=== PATIENT | female | born 1990 | race Caucasian/White ===

== ENCOUNTER → 2018-10-13 14:13 | Outpatient (CLI) | payer BC, SELFPAY ==
--- NOTE | 2018-10-13 14:15 | US_ITS ---
US OB transvaginal HISTORY: ITS.REASON: US OB Dates ORDERING PHYSICIAN: Kaila Rossi MD PATIENT AGE: 28 years COMPARISON: None FINDINGS: An intrauterine gestational sac is present with a pole with a crown-rump length of 2.03cm correlating to gestational age of 8w5d. heart tones are present with an FHR of 157 bpm's. Yolk sac is noted. The amnion and chorion have not yet fused. Adnexa: Unremarkable. IMPRESSION: Live intrauterine gestation at 8 weeks 5 days days as described above. Estimated due date by Ultrasound is 05/20/2019
== END ==
PROVIDERS: PCP Family Medicine; Visit Provider Obstetrics & Gynecology
DX: O26.841 Uterine size-date discrepancy, first trimester (principal)
CPT/HCPCS: 76817

== ENCOUNTER → 2018-10-13 15:11 | Outpatient (CLI) | payer BC, SELFPAY ==
[2018-10-13 16:13] LABS: Basophils % 0.3 % (0.1-2.0); Eosinophils # 0.1 K/mm3 (0.0-0.4); Eosinophils % 0.8 % (0.1-12.0); Hematocrit 43.8 % (37.0-47.0); Hemoglobin 14.3 g/dL (12.2-16.2); Lymphocytes # 2.4 K/mm3 (0.7-4.5); Mean Corpuscular HGB Conc 32.6 g/dL (31.8-35.4); Mean Corpuscular Hemoglobin 30.1 pg (27.0-31.2); Mean Corpuscular Volume 92.3 fl (81-99); Mean Platelet Volume 8.5 fl (7.4-10.4); Monocytes # 0.5 K/mm3 (0.1-1.0); Neutrophils # 9.6 K/mm3 (1.8-7.8); Platelet Count 224 K/mm3 (142-424); Red Blood Count 4.75 M/mm3 (4.20-5.40); Red Cell Distribution Width 12.7 % (11.5-17.5); White Blood Count 12.6 K/mm3 (4.8-10.8)
[2018-10-15 07:13] LABS: HIV Screen 4th Generation wRfx Non Reactive (Non Reactive); Rapid Plasma Reagin Ab Titer Non Reactive (NonRea<1:1)
[2018-10-15 14:01] LABS: Hepatitis B Surface Antigen Negative (Negative); Hepatitis C Antibody <0.1 s/co ratio (0.0-0.9); Rubella Antibodies, IgG <0.90 index (Immune >0.99)
== END ==
PROVIDERS: Visit Provider Obstetrics & Gynecology
DX: Z34.90 Encounter for supervision of normal pregnancy, unspecified, unspecified trimester (principal)
CPT/HCPCS: 36415; 85025; 86592; 86703; 86762; 86850; 87340; 87380; G0432

== ENCOUNTER → 2019-01-03 14:54 | Outpatient (CLI) | payer BC, SELFPAY ==
--- NOTE | 2019-01-03 15:08 | US_ITS ---
US OB /maternal detail: INDICATION: ITS.REASON: US OB Complete ORDERING PHYSICIAN: Kaila Rossi MD PATIENT AGE: 28 years TECHNIQUE: ultrasound transabdominal scanning. COMPARISON: No previous relevant studies. FINDINGS: Single viable intrauterine gestation. Breech position. Placenta: Anterior placenta grade 1. There is average amount fluid. The cervix appears satisfactory. Closed and measuring 4 cm in length. Complete survey performed and was unremarkable on the submitted images as in PACS. No discrete anomalies identified on survey imaging by technologist. Active fetus. Three-vessel cord with satisfactory umbilical cord insertion. 4- chamber heart noted. Survey of brain & ventricles unremarkable. Face and neck survey unremarkable. Diaphragm and chest views unremarkable. Abdomen: Both kidneys noted and unremarkable. Stomach noted and satisfactory. Spine: Survey of the spine satisfactory with no anomalies identified nor imaged. Both arms and legs noted. Amniotic Fluid: Adequate. Maternal adnexa: No significant findings. Measurements: Average ultrasound age 20w4d. Gestational Age 20w3d. Estimated due date by ultrasound age 0705/19/2019. Estimated weight 350 grams. BPD = 21w3d OFD = 20w2d HC = 19w6d AC = 20w4d FL = 20w2d Growth Percentile= 42% Heart Rate = 161 Cerebellum = 21w4d Humerus = 21w4d HC/AC is 1.13(1.09-1.26). CI is 86% (70-86%). FL/BPD is 65%. FL/AC is 21%. IMPRESSION: There is a single live fetus which is in breech presentation. Average ultrasound age 20 weeks and 4 days. No obvious anomalies. All parameters correlate. Please see above for details. Placenta is anterior and grade 1
== END ==
PROVIDERS: PCP Family Medicine; Visit Provider Obstetrics & Gynecology
DX: Z36.0 Encounter for antenatal screening for chromosomal anomalies (principal)
CPT/HCPCS: 76811

== ENCOUNTER → 2019-02-21 08:41 | Outpatient (CLI) | payer BC, SELFPAY ==
[2019-02-21 10:57] LABS: Glucose 1 Hour 91 mg/dL (74-106); Glucose,Fasting 80 mg/dL (60-105)
== END ==
PROVIDERS: Visit Provider Obstetrics & Gynecology
DX: Z34.90 Encounter for supervision of normal pregnancy, unspecified, unspecified trimester (principal)
CPT/HCPCS: 36415; 82951

== ENCOUNTER → 2019-04-10 10:23 | Outpatient (CLI) | payer BC, SELFPAY ==
--- NOTE | 2019-04-10 10:30 | US_ITS ---
US OB follow up: Indication: ITS.REASON: US OB- Growth ILEANA LGA ORDERING PHYSICIAN: Kaila Rossi MD PATIENT AGE: 28 years FINDINGS: There is a single live fetus which is in cephalic presentation. heart and body motion is noted. The following parameters are obtained: Average ultrasound age is 36w0d. Estimated due date by ultrasound is 05/08/2019. Estimated weight is 2746 grams this is 84th percentile. BPD: 37w0d OFD: 35w3d HC: 35w4d AC: 36w0d FL: 35w0d heart rate: 169 bpm. HC/AC: 0.99 (0.96-1.11) Cephalic index: 83% (70-86%) FL/BPD: 75% (71-87%) FL/AC: 21% (20-24%) Amniotic fluid index: 14 cm No obvious anomalies evident. Placenta: Anterior GR 2 Cervix: Appears closed and measures 3 cm IMPRESSION: Single live fetus which is in cephalic presentation with an average ultrasound age of 36 weeks and 0 days with an estimated weight 2746 g which is 84th percentile. Anterior grade 2 placenta. Average amniotic fluid volume with an ILEANA of 14 cm
== END ==
PROVIDERS: PCP Family Medicine; Visit Provider Obstetrics & Gynecology
DX: O36.60X0 Maternal care for excessive fetal growth, unspecified trimester, not applicable or unspecified (principal)
CPT/HCPCS: 76816

== ENCOUNTER → 2019-04-19 18:13 | Outpatient (CLI) | payer BC, SELFPAY | PROVIDERS: Visit Provider Obstetrics & Gynecology | DX: Z34.90 Encounter for supervision of normal pregnancy, unspecified, unspecified trimester (principal) | CPT/HCPCS: 86403 ==

== ENCOUNTER 2019-04-25 22:44 | Inpatient (IN) ==
[2019-04-25 23:10] LABS: Microscopic, Urine URINE MICROSCOPIC (MICROSCOPIC)
[2019-04-25 23:15] LABS: Appearance,Urine CLEAR (Clear); Bilirubin,Urine Negative (Negative); Blood, Urine Negative (Negative); Color,Urine YELLOW (Yellow); Glucose,Urine (UA) Negative (Negative); Ketones,Urine Negative (Negative); Leukocyte Esterase,Urine Negative (Negative); Protein,Urine Negative (Negative); Urobilinogen,Urine 0.2 EU/dl (0.2)
[2019-04-25 23:21] LABS: Bacteria,Urine Trace /lpf; WBC,Urine Occasional #/hpf (0-3)
[2019-04-25 23:22] LABS: Amphetamine/Metha Screen,Urine Negative ng/mL (<1000); Barbiturates Screen,Urine Negative ng/mL (<200); Benzodiazepines Screen,Urine Negative ng/mL (<200); Cannabinoid Screen,Urine Negative ng/mL (<50); Cocaine Screen,Urine Negative ng/mL (<300); Methadone Screen,Urine Negative ng/mL (<300); Opiate Screen,Urine Negative ng/mL (<300); Phencyclidine Screen,Urine Negative ng/mL (<25)
[2019-04-26 02:58] LABS: Basophils % 0.1 % (0.1-2.0); Eosinophils # 0.1 K/mm3 (0.0-0.4); Eosinophils % 1.1 % (0.1-12.0); Hematocrit 40.1 % (37.0-47.0); Hemoglobin 13.2 g/dL (12.2-16.2); Lymphocytes # 2.1 K/mm3 (0.7-4.5); Lymphocytes % 17.4 % (10-50); Mean Corpuscular HGB Conc 32.8 g/dL (31.8-35.4); Mean Platelet Volume 10.3 fl (7.4-10.4); Monocytes # 0.6 K/mm3 (0.1-1.0); Monocytes % 5.2 % (1.7-9.3); Neutrophils # 9.4 K/mm3 (1.8-7.8); Neutrophils % 76.3 % (37.0-80.0); Platelet Count 156 K/mm3 (142-424); Red Blood Count 4.18 M/mm3 (4.20-5.40); White Blood Count 12.4 K/mm3 (4.8-10.8)
--- NOTE | 2019-04-26 04:19 | Progress Note ---
[facility] Anesthesia Checklist - Patient Identification Patient Identification: Arm Band, Verbal (Name & ) - Structural Data Admitted From: Home Planned Operative Procedure/s: Labor epidural Consent for Planned Operative Procedure(s) Verified: Yes Verified Documents: Surgical Consent, History and Physical - Chart Verification Results Verified: CBC - Additional verifications Patient : Yes Anesthesia Reactions: No - Airway Assessment C-Spine Mobility Assessed: Yes TMJ Mobility Assessed: Yes Dentition: Good Dentition - Neurological Assessment Level of Consciousness: Awake, Alert, Appropriate, Follows Commands Hx Seizures: No Numbness or tingling in extremities: No - Anesthesia Plan Anesthesia Risk discussed: Yes Anesthesia Plan: Verified ASA Class: II Anesthesia Type: Epidural [facility] History I have reviewed the patient's past medical history: Yes Medical History: Reports:: Anxiety Denies:: Depression, Migraine, MRSA, Seizures *Have you ever received a pneumonia vaccine?: No *Have you received a flu vaccine this season?: No Laterality Cases: Other Surgeries: Yes: Appendectomy. No: Amputation: No Fractures: No - *Social History Smoking Status: Former smoker Alcohol Intake: never Alcohol Intake Frequency:: 0-2 drinks per day Substance Use Type: denies use *Occupational Status:: employed Housing: house Household Members: spouse *Travel in the last 8 weeks: None - Psychiatric History Pschychiatric History:: Reports:: Anxiety Denies:: Depression Family Hx:: Cancer, Heart Attack, Hyperlipidemia, Hypertension, Stroke, Thyroid Disorder, Anemia Para: 0
--- NOTE | 2019-04-26 04:57 | Procedure Note ---
- Delivery Note Delivery Date:: 04/26/19 Delivery Time:: 04:35 Anesthesia Type: Epidural Was labor medically induced?: No Induction method: none Gestational age (weeks): 36 delivered prior to 39 weeks?: Yes Justification for early elective delivery:: Active Labor Infant Gender: Female at 1 minute: 7 at 5 minutes: 9 AF:: Clear fluid LAC or MLE?: LAC Delivery Procedure:: She is a 29-year-old 1 para 0 at 36 and 4 weeks gestational age. She ruptured her membranes on the night prior to discharge around 9:30 PM. Fluid was clear. She arrived in labor and delivery and was found to be 2 cm dilated and actively emily. She progressed to full dilation under labor epidural. She delivered spontaneously a liveborn female child at 4:35 AM on the morning of April 26, 2019. On deliver the head it was noted that there was a tight nuchal cord. I was able to deliver the rest the infant's body atraumatically and then reduce the cord. The baby was vigorous and cried spontaneously. The oropharynx and nasopharynx were then bulb suction. We allowed the cord to continue to pulsate for approximately 1 minute. The cord was then doubly clamped and cut. The baby was placed on the mother's abdomen for further care. The nurses assigned Apgars of 7 at 1 minute and 9 at 5 minutes. We then obtained cord blood as well as cord pH. pH was 7.33. Using gentle traction on the cord and countertraction the fundus I was able to easily deliver the placenta intact. It had a normal three-vessel cord. He had small bilateral labial tears were repaired with interrupted 3-0 Vicryl Rapide s uture. There is a tear in the vagina posteriorly just at the introitus and I used a single [id number] 3-0 Vicryl Rapide suture to proximate the tissues. She has a positive blood, she is rubella non-immune and was group B streptococcus negative. She plans to breast feed. Her key account coordinator is Dr. Gay. Estimated blood loss was approximately 500 cc. Laceration:: vaginal, labial Placental Delivery Description: Spontaneous
--- NOTE | 2019-04-26 04:59 | History & Physical Report ---
OB - H&P: HPI Antepartum - History of Present Illness Chief complaint: She ruptured her membranes at home at 36 weeks. History of present illness: She is a 29-year-old 1 para 0 who ruptured her membranes at home on the evening prior to delivery. There was clear amniotic fluid. She arrived having regular contractions. - History of Present Criteria for establishing EDC:: LMP confirmed by 1st trimester US care: good care Ultrasounds: normal 1st trimester US, normal mid trimester US Obstetrical complications: none Medical complications: none - Labs Blood type: A (+) positive Rubella: nonimmune RPR/VDRL: nonreactive GBS status: negative [facility] History I have reviewed the patient's past medical history: Yes Medical History: Reports:: Anxiety Denies:: Depression, Migraine, MRSA, Seizures *Have you ever received a pneumonia vaccine?: No *Have you received a flu vaccine this season?: No Laterality Cases: Other Surgeries: Yes: Appendectomy. No: Amputation: No Fractures: No - *Social History Smoking Status: Former smoker Alcohol Intake: never Alcohol Intake Frequency:: 0-2 drinks per day Substance Use Type: denies use *Occupational Status:: employed Housing: house Household Members: spouse *Travel in the last 8 weeks: None - Psychiatric History Pschychiatric History:: Reports:: Anxiety Denies:: Depression Family Hx:: Cancer, Heart Attack, Hyperlipidemia, Hypertension, Stroke, Thyroid Disorder, Anemia Para: 0 Review of Systems - Review of Systems Review of systems:: pertinent systems reviewed and negative unless documented below Meds Home Medications Medication Instructions Recorded Confirmed Type 1 tab PO DAILY 10/05/18 04/25/19 History vitamin,calcium,ipojojss-khol-vnzek acid tablet Allergies Allergy/AdvReac Type Severity Reaction Status Date / Time No Known Allergies Allergy Verified 04/24/19 16:11 OB - H&P: Exam - Physical Exam Vital signs: Temp Pulse Resp BP Pulse Ox 99.1 F 68 18 131/93 H 98 04/25/19 23:12 04/25/19 23:12 04/25/19 23:12 04/25/19 23:12 04/25/19 23:12 - Constitutional no acute distress - Routine HEENT Exam Head: Present: normocephalic Eye: Present: EOMI, PERRL ENT: Present: mucous membranes moist - Routine Neck Exam Present: supple, full ROM - Routine Respiratory Exam Absent: accessory muscle use (good air entry bilaterally), respiratory distress, wheezes, crackles - Routine Cardiovascular Exam Present: RRR. Absent: murmur - Routine Abdominal Exam Present: soft, normoactive bowel sounds. Absent: tenderness, distended, guarding - Routine Rectal Exam Patient deferred: visual exam, digital exam - Routine Exam Patient deferred: external exam, groin exam, perineal exam - Routine Extremities Exam Present: full ROM. Absent: cyanosis, edema - Routine Skin Exam Present: intact. Absent: cyanosis - Routine Neurological Exam Present: alert, oriented X3 - Routine Psychiatric Exam Present: normal affect OB - Results - Labs Labs: Short CBC 04/25/19 04/26/19 Range/Units 00:15 02:45 WBC 6.6 12.4 H D (4.8-10.8) K/mm3 Hgb 21.9 H* 13.2 (12.2-16.2) g/dL Hct 68.8 H* 40.1 (37.0-47.0) % Plt Count 51 L 156 D (142-424) K/mm3 Urine 04/25/19 Range/Units 22:52 Urine Color Yellow (Yellow) Urine Appearance Clear (Clear) Urine pH 6.0 (5.0-8.5) Ur Specific [place] 1.020 (1.005-1.030) Urine Protein Negative (Negative) Urine Glucose (UA) Negative (Negative) OB - A/P Antepartum (1) labor with delivery Current visit: Yes Status: Acute - Additional Plan Planning to breastfeed?: Yes Plan: expectant management
[2019-04-26 17:12] VITALS: BP 127/78
--- NOTE | 2019-04-26 17:51 | Discharge Summary ---
General - General Admission date:: 04/25/19 Discharge date: 04/28/19 HPI HPI: She is a 29-year-old 1 now para 1 who was 36 and 4 weeks gestational age. She ruptured her members at home and came into labor and delivery. Hospital Course Hospital Course: She progressed under labor epidural to full dilation and delivered spontaneously a liveborn female child at 4:35 AM on the morning of April 26, 2019. The baby weighed 6 pounds 6 ounces and was 19-1/2 inches long. She had Apgars of 7 at 1 minute and 9 at 5 minutes. She has done well and has remained afebrile throughout her hospitalization. She is eating and drinking and ambulating. She is breast- feeding. She has a positive blood, she is rubella nonimmune and will receive MMR prior to discharge. She was group A streptococcus negative. Her condition on discharge is stable. Rhogam Administration: Not Indicated Objective Vital signs: Temp Pulse Resp BP Pulse Ox 98.8 F 77 18 127/78 98 04/26/19 16:00 04/26/19 16:00 04/26/19 16:00 04/26/19 16:00 04/26/19 16:00 no acute distress Results Labs on day of discharge: Labs from last 24 hours 04/26/19 04/26/19 04/26/19 04:45 02:45 00:15 WBC 12.4 H Corrected WBC RBC 4.18 L Hgb 13.2 Hct 40.1 MCV 96.0 MCH 31.5 H MCHC 32.8 RDW 13.0 Plt Count 156 MPV 10.3 Neut % (Auto) 76.3 Lymph % (Auto) 17.4 [place] % (Auto) 5.2 Eos % (Auto) 1.1 Baso % (Auto) 0.1 Neut # (Auto) 9.4 H Lymph # (Auto) 2.1 [place] # (Auto) 0.6 Eos # (Auto) 0.1 Baso # (Auto) 0.0 Cord ABG pH 7.33 L Urine Color Urine Appearance Urine pH Ur Specific [place] Urine Protein Urine Glucose (UA) Urine Ketones Urine Blood Urine Nitrate Urine Bilirubin Urine Urobilinogen Ur Leukocyte Esterase Urine WBC Urine Bacteria Membrane Rupture Urine Opiates Screen Urine Methadone Screen Ur Barbituates Screen Ur Phencyclidine Scrn Ur Amphetamines Screen U Benzodiazepines Scrn Urine Cocaine Screen U Marijuana (THC) Screen Blood Type A Positive Antibody Screen Negative 04/25/19 04/25/19 04/25/19 22:52 22:52 22:52 WBC Corrected WBC RBC Hgb Hct MCV MCH MCHC RDW Plt Count MPV Neut % (Auto) Lymph % (Auto) [place] % (Auto) Eos % (Auto) Baso % (Auto) Neut # (Auto) Lymph # (Auto) [place] # (Auto) Eos # (Auto) Baso # (Auto) Cord ABG pH Urine Color Yellow Urine Appearance Clear Urine pH 6.0 Ur Specific [place] 1.020 Urine Protein Negative Urine Glucose (UA) Negative Urine Ketones Negative Urine Blood Negative Urine Nitrate Negative Urine Bilirubin Negative Urine Urobilinogen 0.2 Ur Leukocyte Esterase Negative Urine WBC Occasional Urine Bacteria Trace Membrane Rupture Positive A Urine Opiates Screen Negative Urine Methadone Screen Negative Ur Barbituates Screen Negative Ur Phencyclidine Scrn Negative Ur Amphetamines Screen Negative U Benzodiazepines Scrn Negative Urine Cocaine Screen Negative U Marijuana (THC) Screen Negative Blood Type Antibody Screen 04/25/19 04/25/19 00:15 00:15 WBC Cancelled Corrected WBC Cancelled RBC Cancelled Hgb Cancelled Hct Cancelled MCV Cancelled MCH Cancelled MCHC Cancelled RDW Cancelled Plt Count Cancelled MPV Cancelled Neut % (Auto) Cancelled Lymph % (Auto) Cancelled [place] % (Auto) Cancelled Eos % (Auto) Cancelled Baso % (Auto) Cancelled Neut # (Auto) Cancelled Lymph # (Auto) Cancelled [place] # (Auto) Cancelled Eos # (Auto) Cancelled Baso # (Auto) Cancelled Cord ABG pH Urine Color Urine Appearance Urine pH Ur Specific [place] Urine Protein Urine Glucose (UA) Urine Ketones Urine Blood Urine Nitrate Urine Bilirubin Urine Urobilinogen Ur Leukocyte Esterase Urine WBC Urine Bacteria Membrane Rupture Urine Opiates Screen Urine Methadone Screen Ur Barbituates Screen Ur Phencyclidine Scrn Ur Amphetamines Screen U Benzodiazepines Scrn Urine Cocaine Screen U Marijuana (THC) Screen Blood Type Cancelled Antibody Screen Cancelled DS: Diagnosis - Discharge Diagnosis (1) labor with delivery Status: Acute Discharge Plan - Patient Discharge Instructions ACTIVITY: Ambulate as tolerated - Follow up Plan Disposition: Home, Self-[facility] Medications: Home Medications Medication Instructions Recorded Confirmed Type 1 tab PO DAILY 10/05/18 04/25/19 History vitamin,calcium,foqgmrhp-kpuq-qroqp acid tablet Prescriptions/Medication Reconciliation: Continued vitamin,calcium,oenfdsvy-ljth-sqqtp acid tablet 1 tab PO DAILY
[2019-04-27 07:40] LABS: Hematocrit 34.6 % (37.0-47.0); Hemoglobin 11.1 g/dL (12.2-16.2)
--- NOTE | 2019-04-27 09:01 | Progress Note ---
Internal Medicine - PN: Subj *Date: 04/27/19 *Time: 08:59 Interval history: This is day #1. The patient is afebrile. Vital signs stable. Abdomen soft. Lochia normal. Uterine fundus involuting well. The baby is doing well. Patient's hemoglobin is 11.1 g, but she is clinically stable. She is anxious for early discharge, and will be discharged later today if the baby is cleared by the net repairer. She is rubella nonimmune, and will receive vaccine prior to discharge. She is given appropriate instructions as to diet and exercise, and she is to follow-up with Dr. Toney as scheduled. Exam Vital signs and Labs for Last 24 Hours: Temp Pulse Resp BP Pulse Ox 98.8 F 77 18 127/78 98 04/26/19 16:00 04/26/19 16:00 04/26/19 16:00 04/26/19 16:00 04/26/19 16:00 Laboratory Results - last 24 hr 04/25/19 00:15: Blood Type Cancelled, Antibody Screen Cancelled 04/26/19 00:15: Blood Type A Positive, Antibody Screen Negative 04/27/19 07:05: Hgb 11.1 L, Hct 34.6 L I & O for Last 24 hours: Intake & Output 04/24/19 04/25/19 04/26/19 04/27/19 11:59 11:59 11:59 11:59 Weight 211 lb Assessment and Plan (1) labor with delivery Current visit: Yes Status: Acute Category: Medical Code(s): O60.10X0 - labor with delivery, unspecified trimester, not applicable or unspecified
== END 2019-04-27 12:40 | disposition home or self-care (01) | DRG 806 ==
LOC: OBOUT 22:44 → OB 22:46
PROVIDERS: ADMIT Nurse Practitioner Obstetrics & Gynecology; ATTEND Nurse Practitioner Obstetrics & Gynecology
CPT/HCPCS: J0595

== ENCOUNTER → 2020-10-28 12:15 | Outpatient (CLI) | payer BC, SELFPAY ==
[2020-10-28 13:17] LABS: Adenovirus,PCR Not Detected (NotDetected); Bordetella Pertussis Not Detected (NotDetected); Chlamydophila Pneumoniae, PCR Not Detected (NotDetected); Coronavirus 229E Not Detected (NotDetected); Coronavirus NL63 Not Detected (NotDetected); Coronavirus OC43 Not Detected (NotDetected); Coronovirus HKU1,PCR Not Detected (NotDetected); Human Metapneumovirus Not Detected (NotDetected); Influenza A, PCR Not Detected (NotDetected); Influenza AH1, 2009 Not Detected (NotDetected); Influenza AH1, PCR Not Detected (NotDetected); Influenza AH3,PCR Not Detected (NotDetected); Influenza B, PCR Not Detected (NotDetected); Mycoplasma Pneumoniae, PCR Not Detected (NotDetected); Parainfluenza 1, PCR Not Detected (NotDetected); Parainfluenza 2, PCR Not Detected (NotDetected); Parainfluenza 3, PCR Not Detected (NotDetected); Parainfluenza 4, PCR Not Detected (NotDetected); Respiratory Syncytial Virus Not Detected (NotDetected); Rhinovirus/Enterovirus Not Detected (NotDetected)
[2020-10-28 13:32] LABS: Basophils % 0.7 % (0.1-2.0); Eosinophils # 0.1 K/mm3 (0.0-0.4); Eosinophils % 1.2 % (0.1-12.0); Hematocrit 46.4 % (37.0-47.0); Hemoglobin 15.4 g/dL (12.2-16.2); Lymphocytes # 1.5 K/mm3 (0.7-4.5); Lymphocytes % 38.4 % (10-50); Mean Corpuscular HGB Conc 33.3 g/dL (31.8-35.4); Mean Corpuscular Hemoglobin 30.4 pg (27.0-31.2); Mean Corpuscular Volume 91.4 fl (81-99); Mean Platelet Volume 8.4 fl (7.4-10.4); Monocytes # 0.3 K/mm3 (0.1-1.0); Monocytes % 7.3 % (1.7-9.3); Neutrophils % 52.3 % (37.0-80.0); Platelet Count 158 K/mm3 (142-424); Red Blood Count 5.08 M/mm3 (4.20-5.40); Red Cell Distribution Width 12.7 % (11.5-17.5); White Blood Count 3.8 K/mm3 (4.8-10.8)
[2020-10-28 16:48] LABS: Coronavirus 19, PCR Detected (NotDetected)
== END ==
PROVIDERS: PCP Family Medicine; Visit Provider Nurse Practitioner
DX: Z20.828 Contact with and (suspected) exposure to other viral communicable diseases (principal); U07.1 COVID-19
CPT/HCPCS: 36415; 85025; 87581; 87633; 87798

== ENCOUNTER → 2021-01-15 11:19 | Outpatient (CLI) | payer BC, SELFPAY ==
[2021-01-15 12:45] LABS: HCG,Quantitative 6872 mIU/ml (0-5.42)
== END ==
PROVIDERS: Visit Provider Obstetrics & Gynecology
DX: Z34.90 Encounter for supervision of normal pregnancy, unspecified, unspecified trimester (principal)
CPT/HCPCS: 36415; 84702

== ENCOUNTER → 2021-02-04 12:49 | Outpatient (CLI) | payer BC, SELFPAY ==
--- NOTE | 2021-02-04 12:50 | US_ITS ---
PROCEDURE: US OB <= 14 WEEKS FETUS CLINICAL INDICATION: Evaluate for gestational age COMPARISON: US OBFU US OB follow up from 04/10/2019 FINDINGS: An intrauterine gestational sac is present with a pole with a crown-rump length of 1.7cm correlating to gestational age of 8weeks 2days. heart tones are present with an FHR of 164bpm. Yolk sac is noted. IMPRESSION: Live IUP at 8 weeks 2 days Estimated due date by Ultrasound is 09/14/2021 Dictated by: Larry De Leon MD 02/04/2021 16:44 Larry De Leon MD in [facility] 02/04/2021 16:44
== END ==
PROVIDERS: PCP Family Medicine; Visit Provider Obstetrics & Gynecology
DX: Z34.90 Encounter for supervision of normal pregnancy, unspecified, unspecified trimester (principal)
CPT/HCPCS: 76801

== ENCOUNTER → 2021-02-07 12:21 | Outpatient (CLI) | payer BC, SELFPAY ==
[2021-02-07 12:43] LABS: Basophils % 0.2 % (0.1-2.0); Eosinophils # 0.1 K/mm3 (0.0-0.4); Eosinophils % 0.7 % (0.1-12.0); Hematocrit 39.4 % (37.0-47.0); Hemoglobin 13.2 g/dL (12.2-16.2); Lymphocytes # 2.2 K/mm3 (0.7-4.5); Lymphocytes % 25.2 % (10-50); Mean Corpuscular HGB Conc 33.5 g/dL (31.8-35.4); Mean Corpuscular Hemoglobin 29.7 pg (27.0-31.2); Mean Corpuscular Volume 88.6 fl (81-99); Mean Platelet Volume 8.9 fl (7.4-10.4); Monocytes # 0.4 K/mm3 (0.1-1.0); Monocytes % 4.6 % (1.7-9.3); Neutrophils % 69.3 % (37.0-80.0); Platelet Count 205 K/mm3 (142-424); Red Blood Count 4.45 M/mm3 (4.20-5.40); Red Cell Distribution Width 12.6 % (11.5-17.5); White Blood Count 8.6 K/mm3 (4.8-10.8)
[2021-02-07 14:48] LABS: HCG,Quantitative 125380 mIU/ml (0-5.42)
[2021-02-08 12:24] LABS: HIV Screen 4th Generation wRfx Non Reactive (Non Reactive); Hepatitis B Surface Antigen Negative (Negative); Hepatitis C Antibody <0.1 s/co ratio (0.0-0.9); Rapid Plasma Reagin Ab Titer Non Reactive (NonRea<1:1); Rubella Antibodies, IgG 3.94 index (Immune >0.99)
== END ==
PROVIDERS: Visit Provider Obstetrics & Gynecology
DX: Z34.90 Encounter for supervision of normal pregnancy, unspecified, unspecified trimester (principal)
CPT/HCPCS: 36415; 84702; 85025; 86592; 86703; 86762; 86850; 87340; 87380; G0432

== ENCOUNTER → 2021-04-30 13:00 | Outpatient (CLI) | payer BC, SELFPAY ==
--- NOTE | 2021-04-30 13:01 | US_ITS ---
PROCEDURE: US OB >= 14 WEEKS FETUS CLINICAL INDICATION: Ob complete Anatomy Breech Placenta posterior Cervix, fluid and anatomy normal COMPARISON: US US OB <= 14 WEEKS FETUS from 02/04/2021 FINDINGS: There is a single live intrauterine gestation which is in breech presentation. Cervix is closed. Placenta is posterior and grade 1. Complete survey performed and was unremarkable on the submitted images as in PACS. No discrete anomalies identified on survey imaging by technologist. Active fetus. Three-vessel cord with satisfactory umbilical cord insertion. 4- chamber heart noted. Survey of brain & ventricles Unremarkable. Face and neck survey unremarkable. Diaphragm and chest views unremarkable. Abdomen: Both kidneys noted and unremarkable. Stomach noted and satisfactory. Spine: Survey of the spine satisfactory with no anomalies identified nor imaged. Both arms and legs noted. Amniotic Fluid: Adequate. Maternal adnexa: No significant findings. Measurements: Average ultrasound age 20weeks 3days. Gestational Age 20weeks 3days Estimated due date by ultrasound age 1109/14/2021. Estimated weight 343g BPD = 20weeks 4days OFD = 20weeks 5days HC = 19weeks 6days AC = 20weeks 3days FL = 20weeks 3days Growth Percentile= 37Percent% Heart Rate = 150bpm Cerebellum = 20weeks 5days Humerus = HC/AC is 1.14 CI is 0.78 FL/BPD is 0.69 FL/AC is 0.22 IMPRESSION: Single live IUP in breech presentation at 20 weeks 3 days. No obvious anomalies. Please see above for detail. Dictated by: Larry De Leon MD 05/01/2021 08:00 Larry De Leon MD in [facility] 05/01/2021 08:00
== END ==
PROVIDERS: PCP Family Medicine; Visit Provider Obstetrics & Gynecology
DX: Z34.90 Encounter for supervision of normal pregnancy, unspecified, unspecified trimester (principal)
CPT/HCPCS: 76805

== ENCOUNTER → 2021-06-20 09:32 | Outpatient (CLI) | payer BC, SELFPAY ==
[2021-06-20 10:00] LABS: Basophils % 0.2 % (0.1-2.0); Eosinophils # 0.1 K/mm3 (0.0-0.4); Eosinophils % 1.3 % (0.1-12.0); Hematocrit 38.1 % (37.0-47.0); Hemoglobin 12.6 g/dL (12.2-16.2); Lymphocytes # 1.7 K/mm3 (0.7-4.5); Lymphocytes % 18.3 % (10-50); Mean Corpuscular Hemoglobin 31.9 pg (27.0-31.2); Mean Corpuscular Volume 96.7 fl (81-99); Monocytes # 0.4 K/mm3 (0.1-1.0); Neutrophils % 76.1 % (37.0-80.0); Platelet Count 190 K/mm3 (142-424); Red Blood Count 3.94 M/mm3 (4.20-5.40); Red Cell Distribution Width 13.8 % (11.5-17.5); White Blood Count 9.2 K/mm3 (4.8-10.8)
[2021-06-20 10:14] LABS: Glucose,Fasting 82 mg/dl (74-100)
[2021-06-20 11:33] LABS: Glucose 1 Hour 103 mg/dL (74-100)
== END ==
PROVIDERS: Visit Provider Obstetrics & Gynecology
DX: Z34.90 Encounter for supervision of normal pregnancy, unspecified, unspecified trimester (principal)
CPT/HCPCS: 36415; 82951; 85025

== ENCOUNTER → 2021-07-30 12:50 | Outpatient (CLI) | payer BC, SELFPAY ==
--- NOTE | 2021-07-30 12:50 | US_ITS ---
PROCEDURE: US OB FOLLOW UP CLINICAL INDICATION: LGA FINDINGS: There is a single live fetus in cephalic presentation. heart body motion noted. The cervix is closed measuring 4 cm. Heart rate is 144 beats per minute. The placenta is posterior and fundal and grade 2. The following parameters are obtained: Average ultrasound age is Average 33weeks 6days Estimated due date by ultrasound is 09/11/2021. Estimated weight is 2,365g. This is 65th percentile. BPD: 33weeks 1day OFD: 32 weeks 3 days HC: 32weeks 4days AC: 34weeks 2days FL: 35weeks 1day heart rate: 144bpm bpm. HC/AC: 0.97 Cephalic index: 0.8 FL/BPD: 0.83 FL/AC: 0.23 Amniotic fluid index: 11.39cm The femur length is 35weeks 1day IMPRESSION: There is a single live fetus present in cephalic presentation. Average ultrasound age 33 weeks 6 days with an estimated weight 2365 g which is 65th percentile. Normal ILEANA of 11 cm Dictated by: Larry De Leon MD 07/30/2021 17:24 Larry De Leon MD in [facility] 07/30/2021 17:24
== END ==
PROVIDERS: PCP Family Medicine; Visit Provider Obstetrics & Gynecology
DX: O36.60X0 Maternal care for excessive fetal growth, unspecified trimester, not applicable or unspecified (principal)
CPT/HCPCS: 76816

== ENCOUNTER → 2021-08-19 16:02 | Outpatient (CLI) | payer BC, SELFPAY | PROVIDERS: Visit Provider Obstetrics & Gynecology | DX: Z34.90 Encounter for supervision of normal pregnancy, unspecified, unspecified trimester (principal) | CPT/HCPCS: 86403 ==

== ENCOUNTER 2021-09-01 15:57 | Inpatient (IN) | payer BC, SELFPAY ==
[2021-09-01 16:25] VITALS: BMI 31.9
[2021-09-01 17:11] LABS: Coronavirus 19, PCR Not Detected (NotDetected); Influenza A, PCR Not Detected (NotDetected); Influenza B, PCR Not Detected (NotDetected)
[2021-09-01 17:13] LABS: Basophils % 0.2 % (0.1-2.0); Eosinophils # 0.1 K/mm3 (0.0-0.4); Eosinophils % 0.6 % (0.1-12.0); Hematocrit 38.1 % (37.0-47.0); Hemoglobin 12.7 g/dL (12.2-16.2); Lymphocytes # 1.8 K/mm3 (0.7-4.5); Lymphocytes % 16.8 % (10-50); Mean Corpuscular HGB Conc 33.2 g/dL (31.8-35.4); Mean Corpuscular Hemoglobin 31.8 pg (27.0-31.2); Mean Corpuscular Volume 95.7 fl (81-99); Mean Platelet Volume 11.1 fl (7.4-10.4); Monocytes # 0.5 K/mm3 (0.1-1.0); Monocytes % 4.7 % (1.7-9.3); Neutrophils # 8.2 K/mm3 (1.8-7.8); Neutrophils % 77.7 % (37.0-80.0); Platelet Count 138 K/mm3 (142-424); Red Blood Count 3.99 M/mm3 (4.20-5.40); Red Cell Distribution Width 13.7 % (11.5-17.5); White Blood Count 10.5 K/mm3 (4.8-10.8)
[2021-09-01 17:22] VITALS: BP 143/81; PULSE 88; RESP 16; TEMP 36.8; O2SAT 100; BMI 31.8
[2021-09-01 18:47] LABS: Microscopic, Urine URINE MICROSCOPIC (MICROSCOPIC)
[2021-09-01 18:53] LABS: Appearance,Urine CLEAR (Clear); Bilirubin,Urine Negative (Negative); Blood, Urine Negative (Negative); Color,Urine YELLOW (Yellow); Glucose,Urine (UA) Negative (Negative); Ketones,Urine Negative (Negative); Leukocyte Esterase,Urine Negative (Negative); Nitrate,Urine Negative (Negative); Protein,Urine TRACE (Negative); Specific Gravity, Urine >= 1.030 (1.005-1.030)
[2021-09-01 19:09] LABS: Amphetamine/Metha Screen,Urine Negative ng/ml (<1000); Barbiturates Screen,Urine Negative ng/ml (<200)
[2021-09-01 19:10] LABS: Benzodiazepines Screen,Urine Negative ng/ml (<200)
[2021-09-01 19:11] LABS: Cannabinoid Screen,Urine Negative ng/ml (<50); Opiate Screen,Urine Negative ng/ml (<300)
[2021-09-01 19:12] LABS: Cocaine Screen,Urine Negative ng/ml (<300)
[2021-09-01 19:13] LABS: Methadone Screen,Urine Negative ng/ml (<300); Phencyclidine Screen,Urine Negative ng/ml (<25)
[2021-09-01 19:15] LABS: Bacteria,Urine Trace /lpf; Mucus,Urine Trace /lpf
--- NOTE | 2021-09-01 19:23 | [facility].HP ---
*Admission Date: 09/01/21 *Chief complaint: Induction of labor *History of present illness: 31 yo @ 38 10/31 admitted for induction of labor due to gestational hypertension Blood pressure in office today 142/90 with repeat 142/92; negative proteinuria Cervix 1cm in offic today; admitted for cervical ripening with cervadil and cervical balloon status [facility] History I have reviewed the patient's past medical history: Yes Medical History: Reports:: Anxiety Denies:: Depression, Migraine, MRSA, Seizures *Have you ever received a pneumonia vaccine?: No *Have you received a flu vaccine this season?: No Anesthesia experience/problems:: nac Laterality Cases: Bilateral: Tonsillectomy Other Surgeries: Yes: Appendectomy. No: Amputation: No Fractures: No - *Social History Smoking Status: Never smoker Alcohol Intake: never Alcohol Intake Frequency:: 0-2 drinks per day Substance Use Type: denies use *Occupational Status:: employed Housing: house Household Members: spouse *Travel in the last 8 weeks: None - Psychiatric History Pschychiatric History:: Reports:: Anxiety Denies:: Depression Family Hx:: Cancer, Heart Attack, Hyperlipidemia, Hypertension, Stroke, Thyroid Disorder, Anemia Para: 1 Review of Systems - Review of Systems Review of systems:: pertinent systems reviewed and negative unless documented below - Constitutional Denies chills, Denies fever(s) - *Respiratory Denies cough, Denies shortness of breath - *Genitourinary Denies abnormal vaginal bleeding Meds Home Medications Medication Instructions Recorded Confirmed Type prenat.vits,elsie,qfv-lgje-enrjd 1 tab PO DAILY 10/05/18 09/01/21 History Allergies Allergy/AdvReac Type Severity Reaction Status Date / Time No Known Allergies Allergy Verified 09/01/21 11:52 Exam Vital signs and Labs for Last 24 Hours: Temp Pulse Resp BP Pulse Ox 98.3 F 88 16 143/81 H 100 09/01/21 17:22 09/01/21 17:22 09/01/21 17:22 09/01/21 17:22 09/01/21 17:22 Laboratory Results - last 24 hr 09/01/21 16:56: WBC 10.5, RBC 3.99 L, Hgb 12.7, Hct 38.1, MCV 95.7, MCH 31.8 H, MCHC 33.2, RDW 13.7, Plt Count 138 L, MPV 11.1 H, Neut % (Auto) 77.7, Lymph % (Auto) 16.8, [place] % (Auto) 4.7, Eos % (Auto) 0.6, Baso % (Auto) 0.2, Neut # (Auto) 8.2 H, Lymph # (Auto) 1.8, [place] # (Auto) 0.5, Eos # (Auto) 0.1, Baso # (Auto) 0.0 09/01/21 16:56: Blood Type A Positive, Antibody Screen Negative 09/01/21 16:56: SARS-CoV-2 (PCR) Not detected, Influenza A Untype (PCR) Not detected, Influenza Type B (PCR) Not detected 09/01/21 17:58: Urine Color Yellow, Urine Appearance Clear, Urine pH 6.0, Ur Specific [place] >= 1.030, Urine Protein Trace, Urine Glucose (UA) Negative, Urine Ketones Negative, Urine Blood Negative, Urine Nitrate Negative, Urine Bilirubin Negative, Urine Urobilinogen 1.0, Ur Leukocyte Esterase Negative, Urine RBC None, Urine WBC None, Ur Squamous Epith Cells None, Urine Bacteria Trace, Urine Mucus Trace 09/01/21 17:58: Urine Opiates Screen Negative, Urine Methadone Screen Negative, Ur Barbituates Screen Negative, Ur Phencyclidine Scrn Negative, Ur Amphetamines Screen Negative, U Benzodiazepines Scrn Negative, Urine Cocaine Screen Negative, U Marijuana (THC) Screen Negative 09/02/21 06:59: POC Glucose 85 I & O for Last 24 hours: Intake & Output 08/30/21 08/31/21 09/01/21 09/02/21 12:59 11:59 11:59 11:59 Weight 197 lb 15.99 oz - Constitutional no acute distress - *Routine HEENT Exam Head: Present: normocephalic Eye: Absent: conjunctival icterus ENT: Present: mucous membranes moist - *Routine Neck Exam Present: supple. Absent: lymphadenopathy - *Routine Respiratory Exam Present: CTA bilaterally - *Routine Cardiovascular Exam Present: RRR - *Routine Abdominal Exam Present: soft, normoactive bowel sounds. Absent: tenderness - *Routine Rectal Exam Rectal:: deferred - *Routine Genitalia Exam Genitalia:: normal
--- NOTE | 2021-09-02 04:57 | P.PN_ITS ---
[facility] Anesthesia Checklist - Patient Identification Patient Identification: Arm Band - Structural Data Admitted From: Home Planned Operative Procedure/s: Labor Epidural Consent for Planned Operative Procedure(s) Verified: Yes Verified Documents: Surgical Consent, History and Physical - NPO Status Verified Time NPO: 00:00 - Additional verifications Anesthesia Reactions: No - Airway Assessment C-Spine Mobility Assessed: Yes TMJ Mobility Assessed: Yes Dentition: Good Dentition - Neurological Assessment Level of Consciousness: Awake, Alert - Anesthesia Plan Anesthesia Risk discussed: Yes Anesthesia Plan: Verified ASA Class: II Anesthesia Type: Epidural [facility] History I have reviewed the patient's past medical history: Yes Medical History: Reports:: Anxiety Denies:: Depression, Migraine, MRSA, Seizures *Have you ever received a pneumonia vaccine?: No *Have you received a flu vaccine this season?: No Anesthesia experience/problems:: nac Laterality Cases: Bilateral: Tonsillectomy Other Surgeries: Yes: Appendectomy. No: Amputation: No Fractures: No - *Social History Smoking Status: Never smoker Alcohol Intake: never Alcohol Intake Frequency:: 0-2 drinks per day Substance Use Type: denies use *Occupational Status:: employed Housing: house Household Members: spouse *Travel in the last 8 weeks: None - Psychiatric History Pschychiatric History:: Reports:: Anxiety Denies:: Depression Family Hx:: Cancer, Heart Attack, Hyperlipidemia, Hypertension, Stroke, Thyroid Disorder, Anemia Para: 1
--- NOTE | 2021-09-02 05:17 | HMH.LABNOT ---
Labor Note - Subjective: Date: 09/02/21 Time: 05:17 regular contraction - Objective: NST:: Reactive Contractions:: every 2-3 minutes Cervical Dilation:: 9-10 Effacement:: 100% Station: 0 Membranes: artificially ruptured - Fetus: Monitoring?: Yes monitoring type:: External - Assessment: Labor progressing?: Yes Cephalopelvic disproportion?: No Patient Problems: All Active Problems (This Medical Record has been edited. Action required.) Gestational hypertension (Acute) (Acute) - Plan: Anesthesia for epidural?: Yes Continue to labor down?: Yes Plan for ?: No Continue to monitor?: Yes Start pushing?: Yes Comment:: She was induced overnight with Cervidil and a Sheikh bulb and is fully dilated. I ruptured her membranes and there was clear fluid. We will expect a vaginal delivery.
--- NOTE | 2021-09-02 05:40 | HMH.LABNOT ---
Labor Note - Subjective: Date: 09/02/21 Time: 05:40 regular contraction - Objective: NST:: Reactive Contractions:: every 2-3 minutes Cervical Dilation:: 9-10 Effacement:: 100% Station: 0 Membranes: artificially ruptured - Fetus: Monitoring?: Yes monitoring type:: Internal and External, Combination - Assessment: Labor progressing?: Yes Cephalopelvic disproportion?: No Patient Problems: All Active Problems (This Medical Record has been edited. Action required.) Gestational hypertension (Acute) (Acute) - Plan: Anesthesia for epidural?: Yes Continue to labor down?: Yes Plan for ?: No Continue to monitor?: Yes Comment:: We have tried pushing and the baby's head is still little high. She has deep decelerations with each contraction and the baby's head comes down with contractions but will allow the baby's head to come down with contractions rather than with pushing. We will see how she does over the next few minutes.
--- NOTE | 2021-09-02 07:13 | P.PCN_ITS ---
- Delivery Note Delivery Date:: 09/02/21 Delivery Time:: 06:49 Anesthesia Type: Epidural Was labor medically induced?: Yes Induction method: per pitocin protocol Gestational age (weeks): 38 Infant delivered prior to 39 weeks?: Yes Justification for early elective delivery:: Gestational Hypertension Infant Gender: Male at 1 minute: 6 at 5 minutes: 8 LAC or MLE?: LAC Delivery Procedure:: She is a 31-year-old 2 para 1 at 38+ weeks gestational age. She is a patient of Dr. Sanchez who was brought in for induction of labor at term. She had slightly elevated blood pressures and as result of that she was started on Cervidil and Sheikh bulb catheter. She progressed overnight to full dilation and had a labor epidural. I arrived and she had a bulging bag of water. We ruptured the membranes and there is clear fluid. Baby's head was still quite high. We had her try and push but the baby's head stayed high. She was having some early decelerations with each contractions. This persisted when she was not pushing. As result of that I elected to continue to push. There was good recovery between each contraction. She was on oxygen. She brought the baby's head down but there was still not as much descent as I had anticipated with all the pushing. I elected to place the patient in stirrups. I examined her and was able to feel the baby's ear and determined that the baby was direct OP. I was able to rotate the baby's head with my hand. The baby was then in the direct OA position at station +2. I then applied Hannah forceps with pads and using one long gentle pull I was able to easily deliver the baby's head. There was a cord adjacent to the shoulder. The anterior shoulder then delivered followed by the rest the infant's body atraumatically. We stimulated the baby, doubly clamped and cut the cord. The baby was handed off to nurses who assigned Apgars of 6 at 1 minute and 8 at 5 minutes. We then obtained cord blood. She received IV oxytocin and using gentle traction the cord and countertraction on the fundus I was able to easily deliver the placenta intact at 7:04 AM. She had a second-degree perineal laceration with significant edema of the perineum and I repaired this in the usual fashion with 2-0 Vicryl suture to the deep tissues and 3-0 Vicryl Rapide suture to the superficial tissues. She has A positive blood, she is rubella immune and was group B streptococcus negative. She plans to bottlefeed. Her aircraft armorer Dr. Gay. Estimated blood loss was approximately 300 cc. Laceration:: vaginal Placental Delivery Description: Spontaneous
[2021-09-02 07:29] LABS: POC Glucose,Bedside 85 (70-110)
[2021-09-02 08:00] VITALS: BP 122/58; PULSE 80; RESP 20; TEMP 36.7; O2SAT 98
[2021-09-02 16:19] VITALS: BP 130/73; PULSE 77; RESP 20; TEMP 36.7; O2SAT 97
[2021-09-03 07:04] LABS: Hematocrit 35.4 % (37.0-47.0); Hemoglobin 10.9 g/dL (12.2-16.2)
--- NOTE | 2021-09-03 12:06 | HMH.DCSUM ---
General - General Admission date:: 09/01/21 Discharge date: 09/03/21 HPI HPI: 31 yo @ 38 10/31 admitted for induction of labor due to gestational hypertension Blood pressure in office today 142/90 with repeat 142/92; negative proteinuria Cervix 1cm in offic today; admitted for cervical ripening with cervadil and cervical balloon status reassuring on NST Hospital Course Hospital Course: labor begun quickly with cervidil and balloon and she delivered before pitocin augmentation was begun course uneventful she is discharged home on PPD #1 in stable condition she is tolerating regular diet, ambulating and voiding without difficulty vulvar edema has improved significantly she declines prescription pain medication at discharge Rhogam Administration: Not Indicated Objective Vital signs: Temp Pulse Resp BP Pulse Ox 98.0 F 77 20 130/73 97 09/02/21 16:19 09/02/21 16:19 09/02/21 16:19 09/02/21 16:19 09/02/21 16:19 Narrative: CONSTITUTIONAL: no acute distress HEENT: mucous membranes moist PULMONARY: breathing unlabored without audible wheezes CV: no tachycardia or visible JVD; normal LE peripheral pulses ABD: soft, NT/ND, no guarding : fundus firm at/below umbilicus SKIN: no visible rash or lesions EXT: 1+ edema LEs NEURO: alert/oriented, no altered mental status PSYCH: appropriate mood and demeanor Results Labs on day of discharge: Labs from last 24 hours 09/03/21 06:20 Hgb 10.9 L Hct 35.4 L DS: Diagnosis - Discharge Diagnosis (1) 38 weeks gestation of Status: Acute (2) Gestational hypertension Status: Acute Discharge Plan - Patient Discharge Instructions ACTIVITY: Continue current activity DIET: regular diet - Follow up Plan Disposition: Home, Self-Care Condition at discharge:: Stable Home Medications: Home Medications Medication Instructions Recorded Confirmed Type prenat.vits,elsie,iub-bavj-wxelh 1 tab PO DAILY 10/05/18 09/01/21 History Prescriptions/Medication Reconciliation: New Ibuprofen [Motrin 400mg tablet] 800 mg PO Q6HP PRN tablet PRN Reason: Mild To Moderate Pain Acetaminophen [Acetaminophen 325mg tab] 650 mg PO Q4HP PRN tablet PRN Reason: Mild Pain Continued prenat.vits,elsie,nza-sjsz-qwwgc 1 tab PO DAILY - Problem Reconciliation Problems Reviewed?: Yes
[2021-09-03 16:30] VITALS: BP 133/76; PULSE 80; RESP 20; TEMP 36.7; O2SAT 100
== END 2021-09-03 17:50 | disposition home or self-care (01) | DRG 807 ==
PROVIDERS: Nurse Practitioner Obstetrics & Gynecology; Admitting Provider Obstetrics & Gynecology; PCP Family Medicine; Visit Provider Obstetrics & Gynecology
DX: O13.3 Gestational [pregnancy-induced] hypertension without significant proteinuria, third trimester (principal); Z37.0 Single live birth; Z3A.38 38 weeks gestation of pregnancy; O64.8XX0 Obstructed labor due to other malposition and malpresentation, not applicable or unspecified; O70.1 Second degree perineal laceration during delivery
CPT/HCPCS: 59409; 36415; 59025; 80305; 81001; 82962; 85014; 85018; 85025; 86850; 94761; C9803; G0283; U0003; U0005

== ENCOUNTER → 2023-02-22 23:28 | Outpatient (CLI) | payer BC, SELFPAY ==
[2023-02-22 19:18] LABS: Hematocrit 45.2 % (37.0-47.0); Hemoglobin 15.1 g/dL (12.2-16.2); Mean Corpuscular HGB Conc 33.3 g/dL (31.8-35.4); Mean Corpuscular Hemoglobin 30.2 pg (27.0-31.2); Mean Corpuscular Volume 90.6 fl (81-99); White Blood Count 5.6 K/mm3 (4.8-10.8)
[2023-02-22 19:19] LABS: Basophils % 0.4 % (0.1-2.0); Eosinophils # 0.1 K/mm3 (0.0-0.4); Eosinophils % 2.4 % (0.1-12.0); Lymphocytes # 1.9 K/mm3 (0.7-4.5); Lymphocytes % 34.6 % (10-50); Mean Platelet Volume 8.4 fl (7.4-10.4); Monocytes # 0.2 K/mm3 (0.1-1.0); Monocytes % 4.1 % (1.7-9.3); Neutrophils # 3.3 K/mm3 (1.8-7.8); Neutrophils % 58.4 % (37.0-80.0); Platelet Count 226 K/mm3 (142-424); Red Cell Distribution Width 12.3 % (11.5-17.5)
[2023-02-22 19:40] LABS: Chloride 95 mmol/L (98-107); Sodium 139 mmol/L (136-145)
[2023-02-22 19:41] LABS: Potassium 3.8 mmoL/L (3.5-5.1)
[2023-02-22 19:43] LABS: Alanine Aminotransferase 19 U/L (12-78); Albumin Level 4.8 g/dl (3.5-5.0); Albumin/Globulin Ratio 1.8 (1.1-1.8); Alkaline Phosphatase 58 U/L (38-126); Anion Gap 17.8 mEq/L (5-15); Aspartate Amino Transferase 25 U/L (14-36); Bilirubin,Total 0.9 mg/dl (0.2-1.3); Blood Urea Nitrogen 10 mg/dl (7-17); Calcium 9.6 mg/dl (8.4-10.2); Carbon Dioxide 30 mmol/L (22.0-30.0); Cholesterol 210 mg/dl (140-200); Estimated Glomerular Filt Rate 98 ml/min (>60); GFR (African American) 119 ML/MIN (>60); Globulin 2.7 g/dL (1.3-3.2); Glucose 113 mg/dl (74-100); Total Protein,Serum 7.5 g/dl (6.3-8.2); Triglycerides 75 mg/dl (30-150); Uric Acid 3.6 mg/dl (2.5-6.2); VLDL Cholesterol 15 mg/dL (0-40)
[2023-02-22 19:44] LABS: HDL Cholesterol 99 mg/dl (40-60)
[2023-02-22 19:45] LABS: Chol/HDL Ratio 2.1 (1-3.5)
[2023-02-22 19:46] LABS: Erythrocyte Sedimentation Rate 3 mm/hr (0-20)
[2023-02-22 19:56] LABS: Direct LDL Cholesterol 80.33 mg/dL (100-129)
[2023-02-22 20:03] LABS: 25-OH Vitamin D, Total 37.4 ng/mL (30-100)
[2023-02-22 20:04] LABS: Free T4 (Free Thyroxine) 1.28 ng/dl (0.78-2.19)
[2023-02-22 20:16] LABS: Thyroid Stimulating Hormone 1.03 uIU/mL (0.465-4.68)
[2023-02-22 20:35] LABS: Vitamin B12 673 pg/mL (239-931)
[2023-02-22 21:45] LABS: Hemoglobin A1C 4.9 % (4.0-6.0)
[2023-02-22 21:46] LABS: C-Reactive Protein 2.9 mg/L (0-4)
[2023-02-24 13:51] LABS: Anti-Centromere B Antibodies <0.2 AI (0.0-0.9); Anti-DNA (DS) Ab Qn <1 IU/mL (0-9); Anti-Jo-1 <0.2 AI (0.0-0.9); Anti-Smith Antibody <0.2 AI (0.0-0.9); Antichromatin Antibodies <0.2 AI (0.0-0.9); Antiscleroderma-70 Antibodies <0.2 AI (0.0-0.9); RA Latex Turbid. <10.0 IU/mL (<14.0); RNP Antibodies <0.2 AI (0.0-0.9); Sjogren's Anti-SS-A <0.2 AI (0.0-0.9); Sjogren's Anti-SS-B <0.2 AI (0.0-0.9)
[2023-02-25 11:04] LABS: Antinuclear Antibodies, IFA Negative (.)
[2023-02-26 16:13] LABS: Lyme B. burgdorferi PCR Blood Negative (Negative)
== END ==
PROVIDERS: PCP Nurse Practitioner; Visit Provider Nurse Practitioner
DX: F32.A Depression, unspecified (principal); G44.52 New daily persistent headache (NDPH); L65.9 Nonscarring hair loss, unspecified; M25.50 Pain in unspecified joint; R20.2 Paresthesia of skin; R53.83 Other fatigue
CPT/HCPCS: 80053; 80061; 82306; 82607; 83036; 84439; 84443; 84550; 85025; 85651; 86038; 86140; 86225; 86235; 86431; 87476

== ENCOUNTER → 2023-03-04 09:12 | Outpatient (CLI) | payer BC, SELFPAY ==
--- NOTE | 2023-03-04 09:12 | MR_ITS ---
FINAL REPORT TECHNIQUE: 3-D mgld-iy-xnatxh sequences without contrast CLINICAL HISTORY: Headache/Migraine FINDINGS: The distal internal carotid arteries are unremarkable. MCAs and ACAs are unremarkable. Basilar artery is widely patent. forging press setter up are intact. No aneurysm is seen. IMPRESSION: Unremarkable MRA head Reviewed, Interpreted and Dictated by Fabián Aguilar MD Transcribed by Sol Pinzon Authenticated and [facility]
--- NOTE | 2023-03-04 09:12 | MR_ITS ---
FINAL REPORT TECHNIQUE: Multiplanar MR, without and with gadolinium enhancement CLINICAL HISTORY: daily persistent headache FINDINGS: Diffusion sequences show no signal abnormality to indicate acute infarct. No mass, hemorrhage or edema is seen. Ventricles are normal. Major vascular flow voids are intact. Following contrast administration, no mass or abnormal enhancement is seen. IMPRESSION: Unremarkable MR evaluation the brain with contrast Reviewed, Interpreted and Dictated by Fabián Aguilar MD Transcribed by Sol Pinzon Authenticated and [facility]
--- NOTE | 2023-03-04 10:39 | XR_ITS ---
FINAL REPORT CLINICAL HISTORY: Left knee pain COMPARISON: None FINDINGS: LEFT KNEE 3 views of the left knee were obtained. There is no acute fracture or dislocation. Visualized joint spaces are normally aligned. Soft tissues are unremarkable. IMPRESSION: No acute bony abnormality. Reviewed, Interpreted and Dictated by Fabián Aguilar MD Transcribed by Tamera Toney Authenticated and [facility]
--- NOTE | 2023-03-04 10:39 | XR_ITS ---
FINAL REPORT CLINICAL HISTORY: bilateral hip pain COMPARISON: None FINDINGS: AP and frog leg views of the hips were obtained. There is no prior exam for comparison. There is no acute osseous abnormality of either hip. The joint spaces are preserved. Soft tissues are normal. IMPRESSION: No acute osseous abnormality of either hip. Reviewed, Interpreted and Dictated by Fabián Aguilar MD Transcribed by Tamera Toney Authenticated and [facility]
--- NOTE | 2023-03-04 10:39 | XR_ITS ---
FINAL REPORT CLINICAL HISTORY: Right knee pain COMPARISON: None FINDINGS: RIGHT KNEE 3 views of the right knee were obtained. There is no acute fracture or dislocation. Visualized joint spaces are normally aligned. Soft tissues are unremarkable. IMPRESSION: No acute bony abnormality. Reviewed, Interpreted and Dictated by Fabián Aguilar MD Transcribed by Tamera Toney Authenticated and . [facility]
== END ==
PROVIDERS: PCP Nurse Practitioner; Visit Provider Nurse Practitioner
DX: G44.52 New daily persistent headache (NDPH) (principal); M25.551 Pain in right hip; M25.552 Pain in left hip; M25.561 Pain in right knee; M25.562 Pain in left knee
CPT/HCPCS: 70544; 70553; 73521; 73562; A9576

== ENCOUNTER 2023-06-05 13:11 | Emergency (ER) | payer BC, OTHER, SELFPAY ==
[2023-06-05 13:30] VITALS: BP 132/98; PULSE 98; RESP 22; TEMP 37.7; O2SAT 99; BMI 27.4
--- NOTE | 2023-06-05 13:48 | EXP.UTC ---
Discharge Plan Disposition Patient Disposition: Home, Self-Care Condition: Good Prescriptions Prescriptions: New prednisone 10 mg tablet 10 mg PO BID 5 Days Qty: 10 0RF azithromycin [Zithromax] 250 mg tablet 250 mg PO UD DOSE PK Qty: 6 0RF Rx Instructions: Take two (2) tablets today, then one (1) tablet days #2 thru #5 No Action sertraline 50 mg tablet 50 mg PO DAILY Rx Instructions: Take 1/2 Tablet by mouth once daily for 7 days. Then Take 1 Tablet once daily for 7 days. Then Take 2 Tablets by mouth once daily thereafter. Referrals Follow up/Referrals: Fabián Gay MD [Primary Care Provider] - See instructions Activity Restrictions/Add. Instructions Additional Instructions/Restrictions: Drink plenty of fluids. Take tylenol or ibuprofen for pain or fever. Take the medications as directed. Follow up with your regular doctor. GO TO THE ER FOR ANY WORSENING SYMPTOMS Clinical Impressions Clinical Impression: Bronchitis, Pharyngitis Instructions Patient Instructions: DI for Acute Bronchitis Discharge ED Provider: Josh Arambula [facility] General Stated complaint: sore throat, congestion, cough Mode of Arrival: Ambulatory Source of Information: Patient Limitations: No Limitations Time Seen by Provider: 06/05/23 13:48 Description of Symptoms (Recalled from Triage Doc. by RN): PATIENT C/O COUGH AND CHEST CONGESTION SINCE Wednesday Symptoms (Recalled from RN notes): No Resp Symptoms (Recalled from RN notes): Yes Skin Symptoms (Recalled from RN notes): No MS Symptoms (Recalled from RN notes): No Functional Status (Recalled from RN notes): WNL History of Present Illness Provider Complaint: She states that she has had sore throat, cough and sinus congestion for the past 3 days. Related Data Home Medications Medication Instructions Recorded Confirmed sertraline 50 mg tablet 50 mg PO DAILY Anxiety 06/05/23 06/05/23 Previous Rx's Medication Instructions Recorded azithromycin 250 mg tablet 250 mg PO UD DOSE PK #6 tabs 06/05/23 (Zithromax) prednisone 10 mg tablet 10 mg PO BID 5 days #10 tabs 06/05/23 Allergies Allergy/AdvReac Type Severity Reaction Status Date / Time No Known Allergies Allergy Verified 03/01/23 13:03 Worker's Comp Is this a Worker's Comp case?: No [facility] Disclaimer: The information contained in this section may have been updated after the patient was seen, as this information can be updated by other users. Medical History Bilateral hip pain Bilateral knee pain Paresthesia of hand, bilateral Social History Smoking Status: Never smoker alcohol intake: never substance use type: denies use current occupational status: employed Travel in the last 8 weeks: None household members: spouse housing: house ROS Obtained: Yes All systems reviewed & no additional complaints except as documented Constitutional Constitutional: Reports chills and Denies fever(s) Eyes Eyes: Denies eye discharge ENT Ears, Nose, Mouth, and Throat: Reports as per HPI Cardiovascular Cardiovascular: Denies chest pain Respiratory Respiratory: Denies chest congestion and Reports cough Gastrointestinal Gastrointestingal: Reports nausea; Denies abdominal pain, constipation, cramping, diarrhea or vomiting Musculoskeletal Musculoskeletal: Denies arthralgias Integumentary/Breasts Skin/Breast: Denies rash Neurologic Neurologic: Denies paresthesias Physical Exam General General appearance: alert and in no apparent distress Head Head exam: atraumatic, normocephalic and normal inspection Eye Eye exam: Present normal appearance, PERRL and EOMI ENT ENT exam: Present mucous membranes moist and normal external ear exam Expanded ENT Exam TM/Canal exam: Bilateral TM: erythema and bulging Nose exam: Absent sinus tenderness Mouth exam: Present
[2023-06-05 14:04] VITALS: BP 132/98; PULSE 98; RESP 22; TEMP 37.7; O2SAT 99
== END 2023-06-05 14:24 | disposition home or self-care (01) ==
PROVIDERS: Emergency Provider Nurse Practitioner Family; PCP Family Medicine
DX: J20.9 Acute bronchitis, unspecified (principal); J02.9 Acute pharyngitis, unspecified
CPT/HCPCS: 99204; 99212; G0463